=== PATIENT | male | born 1960 | race Caucasian/White ===

== ENCOUNTER 2016-08-28 06:58 | Emergency (ER) | payer SELFPAY ==
[2016-08-28] MEDS ORDERED: ASPIRIN 81 MG TABLET, CHEWABLE PO ONE (06:59)
--- NOTE | 2016-08-28 07:19 | ER Document Report ---
ED General - General Chief Complaint: Chest Pain Stated Complaint: CHEST PAIN Mode of Arrival: Ambulatory Information source: Patient Notes: 56-year-old male history of quadruple bypass 3 stents last heart catheter in 2008 is from [place] presents with complaints of chest pain squeezing sensation lasting 40 minutes similar to his previous heart attacks. Patient notes that the pain radiates to his back and his left shoulder associated with mild shortness of breath. Patient has been constant. Patient took 3 nitroglycerin prior to arrival and has had no relief of his chest pain TRAVEL OUTSIDE OF THE [place] IN LAST 30 DAYS: No - HPI Onset: Just prior to arrival Onset/Duration: Sudden Quality of pain: Pressure Severity: Mild Pain Level: 1 Associated symptoms: Chest pain, Shortness of breath Exacerbated by: Denies Relieved by: Denies Similar symptoms previously: Yes Recently seen / treated by doctor: Yes - Related Data Allergies/Adverse Reactions: morphine Adverse Reaction (Verified 08/28/16 10:19) Past Medical History - Social History Smoking Status: Never Smoker Cigarette use (# per day): No Chew tobacco use (# tins/day): No Smoking Education Provided: No Family History: Reviewed & Not Pertinent Renal/ Medical History: Denies: Hx Peritoneal Dialysis Review of Systems - Review of Systems Notes: REVIEW OF SYSTEMS: CONSTITUTIONAL : Denies fever, chills, or sweats. Denies recent illness. EENT: Denies eye, ear, throat, or mouth pain or symptoms. Denies nasal or sinus congestion or discharge. Denies throat, tongue, or mouth swelling or difficulty swallowing. CARDIOVASCULAR: Admits chest pain RESPIRATORY: Admits shortness of breath GASTROINTESTINAL: Denies abdominal pain or distention. Denies nausea, vomiting , or diarrhea. Denies blood in vomitus, stools, or per rectum. Denies black, tarry stools. Denies constipation. GENITOURINARY: Denies difficulty urinating, painful urination, burning, frequency, blood in urine, or discharge. MUSCULOSKELETAL: Denies back or neck pain or stiffness. Denies joint pain or swelling. SKIN: Denies rash, lesions or sores. HEMATOLOGIC : Denies easy bruising or bleeding. LYMPHATIC: Denies swollen, enlarged glands. NEUROLOGICAL: Denies confusion or altered mental status. Denies passing out or loss of consciousness. Denies dizziness or lightheadedness. Denies headache. Denies weakness or paralysis or loss of use of either side. Denies problems with gait or speech. Denies sensory loss, numbness, or tingling. Denies seizures. PSYCHIATRIC: Denies anxiety or stress. Denies depression, suicidal ideation, or homicidal ideation. ALL OTHER SYSTEMS REVIEWED AND NEGATIVE. Dictation was performed using [employer] voice recognition software PHYSICAL EXAMINATION: GENERAL: Well-appearing, well-nourished and in moderate distress. HEAD: Atraumatic, normocephalic. EYES: Pupils equal round and reactive to light, extraocular movements intact, sclera anicteric, conjunctiva are normal. ENT: Nares patent, oropharynx clear without exudates. Moist mucous membranes. NECK: Normal range of motion, supple without lymphadenopathy LUNGS: Breath sounds clear to auscultation bilaterally and equal. No wheezes rales or rhonchi. HEART: Regular rate and rhythm without murmurs ABDOMEN: Soft, nontender, nondistended abdomen. No guarding, no rebound. No masses appreciated. Musculoskeletal: Normal range of motion, no pitting or edema. No cyanosis. NEUROLOGICAL: Cranial nerves grossly intact. Normal speech, normal gait. Normal sensory, motor exams PSYCH: Normal mood, normal affect. SKIN: Multiple scars on chest and abdomen consistent with bypass, splenectomy, abdominal laparotomy, cholecystectomy Physical Exam - Vital signs Vitals: Temp Pulse Resp BP Pulse Ox 98.0 F 82 19 156/99 H 98 08/28/16 07:07 08/28/16 07:07 08/28/16 07:07 08/28/16 07:07 08/28/16 07:07 Course - Re-evaluation Re-evalutation: 08/28/16 07:18 Patient has extensive cardiac history, I very high suspicion for a cardiac event with this patient, he will be given morphine for his pain as nitroglycerin did not thing, I expect patient to be transferred to outlying facility EKG currently appears normal 08/28/16 08:31 marizol paged for transfer 08/28/16 08:42 Dr haji will accept for transfer, requests heparin loy 08/28/16 08:43 08/28/16 11:06 Daryn chiang paged 08/28/16 11:[address] Beaver, but now patient states he refuses to transfer there pt understands he can be here all day waiting, and that if he does have an [place] he can waiting pt states he understands the risks Amy paged 08/28/16 11:[address] Jd frey - Vital Signs Vital signs: Temp Pulse Resp BP Pulse Ox 98.0 F 82 15 147/99 H 98 08/28/16 07:07 08/28/16 07:07 08/28/16 08:01 08/28/16 08:00 08/28/16 08:01 - Laboratory Result Diagrams: 08/28/16 07:30 08/28/16 07:30 Laboratory results interpreted by me: 08/28/16 08/28/16 08/28/16 07:30 07:30 08:25 WBC 14.4 H RBC 3.88 L Hgb 11.0 L Hct 33.4 L RDW 15.3 H Plt Count 657 H Eosinophils % 7.4 H Absolute Neutrophils 9.4 H Absolute Monocytes 1.9 H Absolute Eosinophils 1.1 H PT Chloride 108 H Carbon Dioxide 20 L Alkaline Phosphatase 132 H Urine Protein 30 H Urine Blood MODERATE H 08/28/16 08:43 WBC RBC Hgb Hct RDW Plt Count Eosinophils % Absolute Neutrophils Absolute Monocytes Absolute Eosinophils PT 11.3 L Chloride Carbon Dioxide Alkaline Phosphatase Urine Protein Urine Blood - Diagnostic Test Radiology reviewed: Image reviewed, Reports reviewed - EKG Interpretation by Me EKG shows normal: Sinus rhythm, [place], Intervals, QRS Complexes Critical Care Note - Critical Care Note Total time excluding time spent on procedures (mins): 33 Comments: minutes of critical care time spent in direct contact evaluating and reevaluating the patient, treating symptoms, reviewing labs and studies and speaking with family and consultants excluding any procedures Discharge - Discharge Clinical Impression: Unstable angina
[2016-08-28] MEDS ORDERED: MORPHINE SULFATE 10 MG/ML INJ IV ONE ×2 (07:21→09:25)
[2016-08-28 07:44] LABS: ABSOLUTE BASOPHILS # (AUTO) 0.1 10^3/uL (0.0-0.2); ABSOLUTE EOSINOPHILS # (AUTO) 1.1 10^3/uL (0.0-0.6); ABSOLUTE LYMPHOCYTES (AUTO) 1.9 10^3/uL (0.5-4.7); ABSOLUTE MONOCYTES (AUTO) 1.9 10^3/uL (0.1-1.4); ABSOLUTE NEUT (AUTO) 9.4 10^3/uL (1.7-8.2); BASOPHILS % (AUTO) 0.8 % (0-2); EOSINOPHILS % (AUTO) 7.4 % (0-6); HEMATOCRIT 33.4 % (37.9-51.0); HGB HCT DIFFERENCE -0.4; LYMPHOCYTES % (AUTO) 13.5 % (13-45); MEAN CORPUSCULAR HEMOGLOBIN 28.3 pg (27.0-33.4); MEAN CORPUSCULAR VOLUME 86 fl (80-97); MONOCYTES % (AUTO) 12.9 % (3-13); RED BLOOD COUNT 3.88 10^6/uL (4.35-5.55); RED CELL DISTRIBUTION WIDTH 15.3 % (11.5-14.0); SEGMENTED NEUTROPHILS % (AUTO) 65.4 % (42-78); WHITE BLOOD COUNT 14.4 10^3/uL (4.0-10.5)
[2016-08-28 08:02] LABS: ALANINE AMINOTRANSFERASE 29 U/L (21-72); ALKALINE PHOSPHATASE 132 U/L (38-126); ANION GAP 14 (5-19); ASPARTATE AMINO TRANSFERASE 18 U/L (17-59); BILIRUBIN,DIRECT 0.3 mg/dL (0.0-0.4); BILIRUBIN,TOTAL 0.4 mg/dL (0.2-1.3); BLOOD UREA NITROGEN 10 mg/dL (7-20); CALCIUM 9.8 mg/dL (8.4-10.2); CARBON DIOXIDE 20 mmol/L (22-30); CHLORIDE 108 mmol/L (98-107); CREATINE KINASE 66 U/L (55-170); CREATININE RESULT 0.76 mg/dL (0.52-1.25); GLUCOSE 92 mg/dL (75-110); POTASSIUM 4.5 mmol/L (3.6-5.0); SODIUM 142.2 mmol/L (137-145); TOTAL PROTEIN 7.1 g/dL (6.3-8.2)
[2016-08-28 08:14] LABS: CREATINE KINASE MB 1.03 ng/mL (<4.55); TROPONIN I < 0.012 ng/mL
[2016-08-28] MEDS ORDERED: NITROGLYCERIN 2% OINTMENT 1 GM PACKET TP ONE (08:29)
[2016-08-28] MEDS ORDERED: HEPARIN SOD (PORCINE) 1,000 UNIT/ML 10 ML VIAL IV ONE (08:43)
[2016-08-28] MEDS ORDERED: HEPARIN SODIUM,PORCINE/D5W 250 ML IV PRN (08:43)
[2016-08-28] MEDS ORDERED: HEPARIN SOD (PORCINE) 1,000 UNIT/ML 10 ML VIAL IV PRN (08:43)
[2016-08-28 09:28] LABS: APPEARANCE,URINE CLEAR; BILIRUBIN,URINE NEGATIVE (NEGATIVE); GLUCOSE, URINE NEGATIVE (NEGATIVE); KETONES,URINE NEGATIVE (NEGATIVE); LEUKOCYTE ESTERASE,URINE NEGATIVE (NEGATIVE); NITRITE,URINE NEGATIVE (NEGATIVE); PROTEIN,URINE 30 mg/dL (NEGATIVE); URINE SPECIFIC GRAVITY 1.024; UROBILINOGEN,URINE NEGATIVE mg/dL (<2.0)
[2016-08-28] MEDS ORDERED: DIPHENHYDRAMINE HCL 50 MG/ML VIAL IV ONE (09:49)
[2016-08-28 09:57] LABS: PROTHROMBIN TIME 11.3 SEC (11.4-15.4)
[2016-08-28 09:58] LABS: PARTIAL THROMBOPLASTIN TIME 28.5 SEC (23.5-35.8)
[2016-08-28] MEDS ORDERED: ACETAMINOPHEN 325 MG TABLET PO ONE (11:30)
[2016-08-28] MEDS ORDERED: HYDROMORPHONE HCL INJ/PF 2 MG/ML AMPULE IV ONE (11:32)
[2016-08-28 13:23] VITALS: BP 120/88
--- NOTE | 2016-08-28 21:55 | EKG REPORT ---
SEVERITY:- NORMAL ECG - SINUS RHYTHM : Confirmed by: Julia Adrian MD 28-Aug-2016 21:54:19
--- NOTE | 2016-08-28 21:55 | EKG REPORT ---
SEVERITY:- NORMAL ECG - SINUS RHYTHM : Confirmed by: Julia Adrian MD 28-Aug-2016 21:54:26
== END 2016-08-28 13:30 | disposition short-term general hospital (02) ==
LOC: ER 06:58
DX: I20.0 Unstable angina (principal); R07.9 Chest pain, unspecified; R06.02 Shortness of breath; Z95.1 Presence of aortocoronary bypass graft; Z88.6 Allergy status to analgesic agent; Z90.49 Acquired absence of other specified parts of digestive tract
CPT/HCPCS: 93005; 96376; 99291; 96375; 96365; 96366; 36415; 82553; 82550; 85025; 85610; 85730; 80053; 81001; 84484; 71010; 93010; J1644 ×2; J1200; J2270; J1170